=== PATIENT | female | born 1990 | race Caucasian/White ===

== ENCOUNTER 2022-12-18 16:02 | Outpatient (CLI) | payer OTHER, SELFPAY | END 2022-12-18 16:03 | disposition home or self-care (01) | PROVIDERS: Visit Provider Registered Nurse | DX: Z01.419 Encounter for gynecological examination (general) (routine) without abnormal findings (principal); Z13.6 Encounter for screening for cardiovascular disorders; Z13.1 Encounter for screening for diabetes mellitus; Z13.29 Encounter for screening for other suspected endocrine disorder | CPT/HCPCS: 80061; 82947; 84443 ==

== ENCOUNTER 2023-11-18 19:39 | Outpatient (CLI) | payer OTHER, SELFPAY ==
--- NOTE | 2023-11-25 11:52 | W.PM.SLEEP ---
Sleep Study Details Details Interpreting Provider: Padmini Date of Sleep Study: 11/18/23 Sleep Study Details: STUDY TYPE:? Home unattended ? BMI:? 38.4 ORDERING PROVIDER:Kamilah Montejo INDICATION:? Concerns about sleep apnea ? SLEEP SUMMARY:? 495.4 minutes monitor RESPIRATORY SUMMARY:? AHI 2.8, low oxygen 88, 0.2% of study oxygen less than 90%, snoring 68.1% In the supine position patient's AHI was 7.7 PERIODIC LIMB MOVEMENTS OF SLEEP:? Not recorded CARDIAC:? Mean 74.4 beats per minute IMPRESSION:? The overall study is within normal limits. The patient does have mild obstructive sleep apnea in the supine position RECOMMENDATION: If sleep disorder strongly suspected a repeat study done in the sleep lab would be indicated. The patient may benefit from positional therapy with avoidance of supine sleep.
== END 2023-11-18 19:40 | disposition home or self-care (01) ==
LOC: SLEEP 19:42
PROVIDERS: Visit Provider Emergency Medicine
DX: G47.19 Other hypersomnia (principal); R06.83 Snoring
CPT/HCPCS: 95806

== ENCOUNTER 2023-12-23 15:25 | Outpatient (CLI) | payer OTHER, SELFPAY | END 2023-12-23 15:26 | disposition home or self-care (01) | LOC: NFLDREF 15:26 | PROVIDERS: Visit Provider Registered Nurse | DX: N39.3 Stress incontinence (female) (male) (principal) | CPT/HCPCS: 87086 ==

== ENCOUNTER 2024-02-01 20:52 | Outpatient (CLI) | payer OTHER, SELFPAY ==
--- NOTE | 2024-02-17 08:29 | W.PM.SLEEP ---
Sleep Study Details Details Interpreting Provider: Padmini Date of Sleep Study: 02/01/24 Sleep Study Details: STUDY TYPE:? Hospital-based attended ? BMI:? 39.1 ORDERING PROVIDER:Kamilah Washington INDICATION:? Concern about sleep apnea ? SLEEP SUMMARY:? 396.5 minutes total sleep time RESPIRATORY SUMMARY:? Mean oxygen awake 97 asleep 94, minimum 87, 0.2 minutes oxygen between 80 and 88% AHI 8.9 per rule 1A guideline, 8.0 per CMS guideline. Supine AHI 23.9, nonsupine AHI 1.4 no supine REM sleep was seen PERIODIC LIMB MOVEMENTS OF SLEEP: Index 1.1, index with arousal 0.5 CARDIAC:? Awake 93 asleep 89 PACs were noted IMPRESSION:? Mild obstructive sleep apnea. Significant supine position dependency RECOMMENDATION: Treatment options include positional therapy, dental appliance, CPAP AutoSet and/or airway expansion surgery. Weight loss is recommended.
== END 2024-02-01 20:53 | disposition home or self-care (01) ==
PROVIDERS: Visit Provider Otolaryngology
DX: G47.33 Obstructive sleep apnea (adult) (pediatric) (principal)
CPT/HCPCS: 95810

== ENCOUNTER 2024-03-21 15:00 | Outpatient (RCR) | payer OTHER, SELFPAY ==
--- NOTE | 2024-01-04 15:55 | PT.OPEX ---
PT [place] Outpatient Eval PT [facility] Outpatient Eval Start: 12/29/23 16:16 Freq: Status: Active Protocol: Document 01/04/24 13:54 VILLA (Rec: 01/04/24 15:37 VILLA [id number]) E-signed By Pamela Georges, PT Physical Therapy Outpatient Evaluation Insurance Information Insurance Name [employer] Medical Diagnosis KEILA Treating Diagnosis Pelvic floor dysfunction. Referring MD Dionne Coburn Subjective Subjective She feels she can hold her urgency well, delaying voids. Jumping, sneezing, coughing- has had to change outerwear with heavy coughing. She is trying to jog for exercise or fast walking on treadmill and will leak after a bit on the treadmill. Weight lifting 2x/ week, yoga 1x/week. Can leak with down to to up poses. She has a little leakage with intercourse, possibly on top. One stool accident c looser stool in fall. She went off control a few months ago . Has not had comfort using a tampon since having children. Can sometimes feel pressure at site of tears. Pain Comments Pain with penetrative sex on ocassion. Occupation SAHM Preferred Name Monica Precautions Therapy Limitations/Systems Review Not Limited Objective Other/Pertinent Objective obesity, anxiety Seated PPT Standing APT hip IR 25 bilat Glute strength 4-/5 bilat TA fair, inferior difficult JAMESON- no doming, good tension Functional Test Performed & Score R ovarian surgery for cyst laproscopic Assessment Assessment/Impression Pt is a 33 yr old female c h/o 3 vaginal births. She has mild vaginal pain with penetration, KEILA c impact of cough/sneeze, jump. She has impaired coordination of pelvic floor muscles and decreased deep core stability. Her pelvic positioning is impaired after multiple and post- changes in COG and length/ tension on abdominal structures. She is starting a more active lifestyle to improve her health through control of bodyweight and good sequencing of intra-abdominal pressure and postural cues will aid her in facilitating pelvic floor coordination. She does have h/o fecal urgency c s/s of posterior pelvic floor tension. Plan of Care Rehabilitation Potential Excellent Physical Therapy Goals Pt will report 50% reduction in fecal urgency in 12 weeks in order to improve quality of life. Pt will improve in sequencing of deep core in order to improve stress incontinence and safety with exercise for weight loss in 10 weeks. Pt will report improved comfort of vaginal canal for improved pelvic hygiene c menses in 8 weeks. Pt will demonstrate indep c HEP in order to progress gains made in therapy. Treatment Plan/Direct Interventions Biofeedback,Joint Mobilization ,Manual Therapy,Neuromuscular Re-ed,Self-Care/Home Management,Therapeutic Activities,Therapeutic Exercises Frequency/Duration 1x/week for 12 weeks, reducing frequeuncy to every 2 weeks when appropriate Patient Will Be Discharged From Therapy Completion of LTG(s),Skills Plateau,Independent w/HEP, Independently Progressing Evaluation Billing Untimed Code Treatment Minutes 30 PT Eval No Charge No Complexity Low Certification Information Physician Comment/Change : Physician NPI Number #
== END 2024-07-19 23:59 | disposition home or self-care (01) ==
PROVIDERS: Visit Provider Registered Nurse
DX: N39.3 Stress incontinence (female) (male) (principal); M62.81 Muscle weakness (generalized); Z51.89 Encounter for other specified aftercare
CPT/HCPCS: 97110; 97112; 97161; 97530

== ENCOUNTER 2025-03-08 14:22 | Outpatient (CLI) | payer OTHER, SELFPAY | END 2025-03-08 14:23 | disposition home or self-care (01) | PROVIDERS: PCP Family Medicine; Visit Provider Family Medicine | DX: R00.2 Palpitations (principal); E55.9 Vitamin D deficiency, unspecified; E66.9 Obesity, unspecified; Z79.899 Other long term (current) drug therapy | CPT/HCPCS: 80053; 80061; 82306; 84443 ==